=== PATIENT | female | born 1995 | race Caucasian/White ===

== ENCOUNTER 2023-04-17 22:38 | Inpatient (IN) | payer OTHER ==
[2023-04-17] MEDS ORDERED: METHYLERGONOVINE 0.2 MG/ML 1 ML AMP IM PRN (23:14)
[2023-04-17] MEDS ORDERED: miSOPROStoL 200 MCG TAB PO PRN (23:14)
[2023-04-17] MEDS ORDERED: OXYTOCIN 10 UNIT/ML 1 ML VIAL IM PRN (23:14)
[2023-04-17] MEDS ORDERED: TERBUTALINE 1 MG/ML VIAL SQ PRN (23:14)
[2023-04-17] MEDS ORDERED: CARBOPROST TROMETHAMINE 250 MCG/ML 1 ML AMP IM PRN (23:14)
[2023-04-17] MEDS ORDERED: TRANEXAMIC 1,000 MG/100ML-NACL 1,000 MG in EMPTY BAG 1 BAG IV PRN (23:14)
[2023-04-17] MEDS ORDERED: LIDOCAINE 0.5% (PF) 5 MG/ML (50 ML SDV) SQ PRN (23:14)
[2023-04-17] MEDS ORDERED: OXYTOCIN 30 UNITS/500 ML NS 30 UNIT in SALINE 1 500ML.BAG IV SCH (23:15)
[2023-04-17] MEDS ORDERED: AMPICILLIN 2,000 MG in SODIUM CHLORIDE 0.9% 100 ML IVPB ONE (23:30)
[2023-04-17] MEDS: LACTATED RINGERS 1,000 ML IV SCH (23:42)
[2023-04-17 23:55] LABS: Basophils % (A) 0 %; Eosinophils # (A) 0.2 k/uL (0-0.7); Eosinophils % (A) 2 %; HCT 37.5 % (34.0-46.0); HGB 12.9 gm/dL (11.4-16.0); Lymphocytes # (A) 2.2 k/uL (1.0-4.8); Lymphocytes % (A) 23 %; MCH 33.5 pg (25.0-35.0); MCHC 34.5 g/dL (31.0-37.0); MCV 97.1 fL (80.0-100.0); Mean Platelet Volume 11.4; Monocytes # (A) 0.4 k/uL (0-1.0); Monocytes % (A) 5 %; Neutrophils # (A) 6.4 k/uL (1.3-7.7); Neutrophils % (A) 68 %; Platelet Count 140 k/uL (150-450); RBC 3.86 m/uL (3.80-5.40); RDW 12.6 % (11.5-15.5); WBC 9.4 k/uL (3.8-10.6)
[2023-04-18 01:18] LABS: Large Platelets Present
[2023-04-18] MEDS: AMPICILLIN 1,000 MG in SODIUM CHLORIDE 0.9% 50 ML IVPB SCH ×6 (05:50→23:55)
--- NOTE | 2023-04-18 11:01 | P.HPOB ---
History of Present Illness H&P Date: 04/18/23 Chief Complaint: Spontaneous rupture of membranes This is a 27-year-old female 3 para 2 with a estimated date of confinement of 04/19/2023, estimated gestational age of 39-5/7 weeks on admission, who presents to labor and delivery with complaints of spontaneous rupture membranes at approximately 6 PM on 04/17/2023. She has been feeling irregular mild contractions since that time. She arrived at approximately 11 PM and was noted to be about 3-1/2 cm at that time. care has been with Dr. Hewitt and has been uncomplicated per patient. Patient would like is little intervention as possible during this labor. labs: Hepatitis B surface antigen-negative RPR-nonreactive Rubella-immune Blood type-A+ Antibody screen-negative HIV-nonreactive Hemoglobin-12.3 Hepatitis C-negative Random glucose-75 GC/chlamydia/Trichomonas-negative One hour Glucola-93 Group B streptococcus-positive Obstetrical history: . History of 2 vaginal deliveries at full-term with no complications. She does state she had very long labors. Gynecologic history: No history of sexual transmitted diseases Social history: She is . She is unemployed. Review of Systems Constitutional: Denies chills, Denies fever Eyes: denies blurred vision, denies pain Ears, nose, mouth and throat: Denies headache, Denies sore throat Cardiovascular: Denies chest pain, Denies shortness of breath Respiratory: Denies cough Gastrointestinal: Reports abdominal pain (Mild contractions) Genitourinary: Denies dysuria, Denies hematuria Musculoskeletal: Reports low back pain Integumentary: Denies pruritus, Denies rash Neurological: Denies numbness, Denies weakness Psychiatric: Denies anxiety, Denies depression Past Medical History Past Medical History: No Reported History History of Any Multi-Drug Resistant Organisms: None Reported Past Surgical History: Tonsillectomy Past Anesthesia/Blood Transfusion Reactions: No Reported Reaction Past Psychological History: No Psychological Hx Reported Smoking Status: Never smoker Past Alcohol Use History: None Reported Past Drug Use History: None Reported - Past Family History Father Family Medical History: Hypertension Medications and Allergies Home Medications Medication Instructions Recorded Confirmed Type Vit No.179/Iron/Folic 1 tab PO DAILY 04/17/23 04/17/23 History [ Tablet] Allergies Allergy/AdvReac Type Severity Reaction Status Date / Time No Known Allergies Allergy Verified 04/17/23 22:53 Exam Osteopathic Statement: *. No significant issues noted on an osteopathic structural exam other than those noted in the History and Physical/Consult. Vital Signs Temp Pulse Resp BP Pulse Ox 04/17/23 23:12 96.7 F L 60 16 119/74 99 04/17/23 22:53 96.7 F L 60 16 119/74 99 Intake and Output 04/17/23 04/18/23 04/18/23 22:59 06:59 14:59 Other: # Voids 2 Weight 68.039 kg 68.039 kg HEENT: Within normal limits Heart: Regular rate and rhythm Lungs: Clear to auscultation bilaterally Abdomen: , nontender heart tones: 110s to 120s with moderate variability and accelerations. Occasional variable deceleration. Contractions: Irregular approximately 8-10 minutes apart Cervix: On admission is 3-1/2 cm/60%/-2 station. On my exam currently she is 4- 1/2 cm/60%/-3 station with no fluid initially identified on exam. Artificial rupture membranes is carried out with clear fluid noted. She may have had a f ore bag rupture prior to this. Extremities: Negative Homans Results Result Diagrams: 04/17/23 23:30 Abnormal Lab Results - Last 24 Hours (Table) 04/17/23 Range/Units 23:30 Plt Count 140 L (150-450) k/uL Assessment and Plan (1) 39 weeks gestation of Current Visit: Yes Status: Acute Code(s): Z3A.39 - 39 WEEKS GESTATION OF SNOMED Code(s): 18274492 (2) Group B Streptococcus carrier, +RV culture, currently Current Visit: Yes Status: Acute Code(s): O99.820 - STREPTOCOCCUS B CARRIER STATE COMPLICATING SNOMED Code(s): 9984438583329 (3) Spontaneous rupture of membranes Current Visit: Yes Status: Acute Code(s): QYW9562 - SNOMED Code(s): 482443630 (4) Premature rupture of membranes (PROM), onset of labor within 24 hours, antepartum Current Visit: Yes Status: Acute Code(s): O42.00 - LALO ROM, ONSET LABOR W/N 24 HR OF RUPT, UNSP WEEKS OF GEST SNOMED Code(s): 217538190 Plan: Admission for spontaneous rupture of membranes. Antibiotic prophylaxis for group B streptococcus. Patient wishes no intervention including oxytocin or pain medication. Since she is agreeable to antibiotic prophylaxis for the group B streptococcus, will continue with observation for spontaneous labor at this time. Expectant management.
[2023-04-18] MEDS: LACTATED RINGERS 1,000 ML IV SCH ×2 (11:43→15:49)
[2023-04-19] MEDS ORDERED: BENZOCAINE/MENTHOL SPRAY 1 GM/SPRAY AEROSOL TOPICAL PRN (00:24)
--- NOTE | 2023-04-19 00:53 | P.PROBDLV ---
Vaginal Delivery Note - . Vaginal Delivery Note: The patient presented with spontaneous rupture of membranes at 1800 on 04/17/2023. Even though her contractions were irregular, she refused oxytocin. At approximately 10 AM on 04/18/2023, I checked her and did feel another bag that was artificially ruptured with more clear fluid noted. Despite this, she still did not progress and still was having irregular contractions up until approximately 24 hours of rupture of membranes. She did receive ampicillin for positive group B streptococcus since arrival to labor and delivery. At approximately 24 hours, she did consent for oxytocin augmentation of labor and did use nitrous oxide for pain control. Once reaching complete, she began pushing. She pushed for approximately 9 minutes. Infant's head came to a crown. With one further push, the infant's head delivered across the perineum in a right occiput anterior lie followed by the anterior shoulder and nuchal right hand. Nose and mouth were bulb suctioned at the perineum and then with one further push, the remainder the easily delivered and was placed on mother's abdomen. Infant was born at 12:24 AM on 04/19/2023. Nose and mouth were again bulb suctioned. After cord finish pulsating, cord was clamped and cut and that was allowed to walters with mother. Infant was then taken to warmer for evaluation by nursing staff. A viable male infant was noted with scores of 7 at 1 minute and 8 at 5 minutes. Infant weight is pending at this time. Placenta delivered shortly thereafter, intact, with a three-vessel cord. Uterus contracted fairly well after oxytocin was given and uterine massage was carried out. A gloved hand was also placed within the uterine cavity to remove any blood clots and her bladder was drained with a catheter. Inspection of the perineum revealed a second-degree perineal laceration. The area was anesthetized with 1% lidocaine and then sutured with 3-0 and 2-0 Vicryl suture in the usual multilayer fashion. Estimated blood loss is approximately 200 mL's. Mother is in stable condition and infant is being monitored in level I nursery.
[2023-04-19] MEDS ORDERED: diphenhydrAMINE 25 MG CAP PO PRN (02:12)
[2023-04-19] MEDS ORDERED: LANOLIN CREAM 5 GM TUBE TOPICAL PRN (02:12)
[2023-04-19] MEDS ORDERED: SIMETHICONE 80 MG CHEWABLE PO PRN (02:12)
[2023-04-19] MEDS ORDERED: ZOLPIDEM 5 MG TAB PO PRN (02:12)
[2023-04-19] MEDS ORDERED: HYDROCORTISONE 2.5% RECTAL CREAM 30 GM TUBE RECTAL PRN (02:12)
[2023-04-19] MEDS ORDERED: diphenhydrAMINE 50 MG CAP PO PRN (02:12)
[2023-04-19] MEDS: LACTATED RINGERS 1,000 ML IV SCH (02:14)
[2023-04-19] MEDS: SENNOSIDES-DOCUSATE SODIUM 1 EACH TAB PO SCH ×2 (08:29→20:19)
[2023-04-19] MEDS: IBUPROFEN 600 MG TAB PO PRN ×2 (11:16→17:05)
[2023-04-19] MEDS: ACETAMINOPHEN TAB 325 MG TAB PO PRN ×2 (13:04→20:19)
[2023-04-19 16:14] VITALS: RESP 16
[2023-04-20] MEDS: IBUPROFEN 600 MG TAB PO PRN ×2 (00:57→08:16)
--- NOTE | 2023-04-20 06:55 | P.PNOBGVD ---
Subjective - Subjective Patient reports: Reports appetite normal, Reports voiding normally, Reports pain well controlled, Reports ambulating normally : doing well Objective - Latest Vital Signs Latest vital signs: Vital Signs Temp Pulse Resp BP Pulse Ox 04/20/23 04:00 97.9 F 69 16 118/76 97 04/20/23 00:00 98 F 68 16 121/74 98 04/19/23 20:00 98 F 68 16 108/62 98 04/19/23 16:00 98.1 F 82 16 104/65 04/19/23 12:00 98.3 F 73 20 113/76 04/19/23 08:00 98.3 F 69 20 96/56 Intake and Output 04/19/23 04/19/23 04/20/23 14:59 22:59 06:59 Intake Total 360 Balance 360 Intake: Oral 360 Other: # Voids 1 1 1 - Exam Lungs: bilateral: normal Chest: Normal S1, Normal S2 Extremities: Present: normal Abdomen: Present: normal appearance, soft Uterus: Present: normal, firm Assessment and Plan Assessment: day #1. Patient is resting without complaints and wishes to go home. Vital signs are stable she is afebrile. Uterus is firm nontender and she is having normal lochia. My impression that this is a normal course. Plan is to continue routine care discharge home later today. (1) Normal vaginal delivery Current Visit: Yes Status: Acute Code(s): O80 - ENCOUNTER FOR FULL-TERM UNCOMPLICATED DELIVERY SNOMED Code(s): 76332791
--- NOTE | 2023-04-20 06:59 | P.DS ---
Providers Date of admission: 04/17/23 23:00 Expected date of discharge: 04/20/23 Attending physician: Mode Hewitt Primary care physician: Stated None - Discharge Diagnosis(es) (1) Normal vaginal delivery Current Visit: Yes Status: Acute Hospital Course: Please see dictated H&P and delivery note per Dr. Sanchez on this patient's admission and delivery. Brief summary this is a pleasant 27-year-old 3 para 2 female 39-5/7 weeks gestation admitted to labor and delivery with spontaneous rupture membranes. Patient's given antibiotics for positive group B strep culture eventually does allow augmentation of labor and goes on to have a vaginal delivery viable male . Please see dictated delivery note. day #1 patient is doing well felt be stable for discharge home follow up with me in 6 weeks. Procedures: Normal spontaneous vaginal delivery Patient Condition at Discharge: Good Plan - Discharge Summary New Discharge Prescriptions: New Ibuprofen [Motrin] 600 mg PO Q6HR PRN #30 tab PRN Reason: Mild Pain (Scale 1 To 3) No Action Vit No.179/Iron/Folic [ Tablet] 1 tab PO DAILY Discharge Medication List Vit No.179/Iron/Folic [ Tablet] 1 tab PO DAILY 04/17/23 [History] Ibuprofen [Motrin] 600 mg PO Q6HR PRN #30 tab 04/20/23 [Rx] Follow up Appointment(s)/Referral(s): Mode Hewitt MD [STAFF PHYSICIAN] - 1 Week (PP 06/02/2023 @10:30) Patient Instructions/Handouts: Vaginal Delivery (DC) Activity/Diet/Wound Care/Special Instructions: No intercourse or anything per vagina for 6 weeks. Please call if any fever, chills, excessive vaginal bleeding, and/or abdominal pain. Discharge Disposition: HOME SELF-CARE
[2023-04-20 07:24] LABS: Basophils % (A) 0 %; Eosinophils # (A) 0.2 k/uL (0-0.7); Eosinophils % (A) 2 %; HCT 36.2 % (34.0-46.0); HGB 12.2 gm/dL (11.4-16.0); Lymphocytes # (A) 2.3 k/uL (1.0-4.8); Lymphocytes % (A) 24 %; MCH 33.5 pg (25.0-35.0); MCHC 33.7 g/dL (31.0-37.0); MCV 99.3 fL (80.0-100.0); Mean Platelet Volume 11.9; Monocytes # (A) 0.5 k/uL (0-1.0); Monocytes % (A) 5 %; Neutrophils # (A) 6.6 k/uL (1.3-7.7); Neutrophils % (A) 68 %; RBC 3.65 m/uL (3.80-5.40); RDW 12.5 % (11.5-15.5); WBC 9.8 k/uL (3.8-10.6)
[2023-04-20 07:32] LABS: Platelet Count 144 k/uL (150-450)
[2023-04-20 08:14] VITALS: BP 117/73; TEMP 97.8
[2023-04-20] MEDS: SENNOSIDES-DOCUSATE SODIUM 1 EACH TAB PO SCH (08:16)
[2023-04-20 13:06] VITALS: PULSE 69
--- NOTE | 2023-04-20 13:06 | P.MSEPDOC ---
Presenting Problems - Arrival Data Date of Arrival on Unit: 04/17/23 Time of Arrival on Unit: 23:00 Mode of Transport: Ambulatory - Complaint OB-Reason for Admission/Chief Complaint: Rule Out SROM Comment: patient presents to [facility] with complaints of ROM. Patient stated fluid was clear to pink tinged. Medical History - Information : 3 Para: 2 Term: 2 : 0 Abortions: Spontaneous or Elective: 0 Number of Living Children: 2 - Gestational Age Gestational Age by DARRELL (wks/days): 39 Weeks and 6 Days - History Complications: GBS+ Review of Systems - Review of Systems Constitutional: No problems Breast: No problems ENT: No problems Cardiovascular: No problems Respiratory: No problems Gastrointestinal: No problems Genitourinary: No problems Musculoskeletal: No problems Neurological: No problems Skin: No problems Vital Signs - Temperature Temperature: 97.8 F Temperature Source: Oral - Pulse Pulse Oximetery Pulse Rate: 69 Pulse Assessment Method: Pulse Oximetry Right Brachial Pulse Rate: 77 Pulse Assessment Method: Automatic Cuff - Respirations Respiratory Rate: 16 Oxygen Delivery Method: Room Air - Blood Pressure Right Arm Blood Pressure: 117/73 Blood Pressure Mean: 87 Blood Pressure Source: Automatic Cuff Medical Screen Scoring - Cervical Exam Dilation (cm): 3 Effacement (%): 60 Station: -2 Membranes: Ruptured - Assessment - Baby A Baseline FHR: 115 Heart Rate - NICHD Category: Category I (Normal) NST: Reactive Physician Notification - Physician Notified Physician Notified Date: 04/17/23 Physician Notified Time: 23:02 Physician: Meka Sanchez Order Received: Yes (admit patient for labor) Maternal Triage Index - Maternal Triage Index Presenting for scheduled procedure w/no complaint: No - Stat/Priority 1 Stat Priority 1: No - Urgent/Priority 2 Urgent Priority 2: No - Prompt/Priority 3 Prompt Priority 3: No - Non-Urgent/Priority 4 Non-Urgent Priority 4: Yes Criteria Met for Priority 4: patient presents to [facility] with complaints of ROM. Patient stated fluid was clear to pink tinged. Disposition - Disposition OB Disposition: Admit Transferred to:: [facility] Discharge Date: 04/20/23 Discharge Time: 11:06 I agree with the RN Medical Screening Exam: Yes Case reviewed; plan agreed upon as documented in EMR&OBIX.: Yes Diagnosis: ENCOUNTER FOR FULL-TERM UNCOMPLICATED DELIVERY
== END 2023-04-20 11:06 | disposition home or self-care (01) | DRG 807 ==
LOC: FBPOP 22:38 → 4FBP 23:00
PROVIDERS: ADMIT Obstetrics & Gynecology; ATTEND Obstetrics & Gynecology
PROC: 10E0XZZ Delivery of Products of Conception, External Approach (ICD-10-PCS; principal; 2023-04-19)
PROC: 0KQM0ZZ Repair Perineum Muscle, Open Approach (ICD-10-PCS; 2023-04-19)
PROC: 3E033VJ Introduction of Other Hormone into Peripheral Vein, Percutaneous Approach (ICD-10-PCS; 2023-04-19)
PROC: 10907ZC Drainage of Amniotic Fluid, Therapeutic from Products of Conception, Via Natural or Artificial Opening (ICD-10-PCS; 2023-04-19)
DX: O42.92 Full-term premature rupture of membranes, unspecified as to length of time between rupture and onset of labor (principal); Z37.0 Single live birth; O70.1 Second degree perineal laceration during delivery; O99.824 Streptococcus B carrier state complicating childbirth; Z3A.39 39 weeks gestation of pregnancy; Z82.49 Family history of ischemic heart disease and other diseases of the circulatory system
CPT/HCPCS: 59025; 84112; 85025; 86850; 86900; 86901; 99213

== ENCOUNTER 2025-05-19 11:53 | Inpatient (IN) | payer OTHER ==
[2025-05-22] MEDS ORDERED: METHYLERGONOVINE 0.2 MG/ML 1 ML AMP IM PRN (18:39)
[2025-05-22] MEDS ORDERED: OXYTOCIN 10 UNIT/ML 1 ML VIAL IM PRN (18:39)
[2025-05-22] MEDS ORDERED: CARBOPROST TROMETHAMINE 250 MCG/ML 1 ML AMP IM PRN (18:39)
[2025-05-22] MEDS ORDERED: TERBUTALINE 1 MG/ML VIAL SQ PRN (18:39)
[2025-05-22] MEDS ORDERED: TRANEXAMIC 1,000 MG/100ML-NACL 1,000 MG in EMPTY BAG 1 BAG IV PRN (18:39)
[2025-05-22] MEDS ORDERED: LIDOCAINE 0.5% (PF) 5 MG/ML (50 ML SDV) SQ PRN (18:39)
[2025-05-22] MEDS ORDERED: OXYTOCIN 30 UNITS/500 ML NS 30 UNIT in SALINE 1 500ML.BAG IV SCH (18:45)
[2025-05-22 20:40] LABS: Basophils # (A) 0.06 10*3/uL (0.00-0.10); Basophils % (A) 0.5 %; Eosinophils # (A) 0.20 10*3/uL (0.04-0.35); Eosinophils % (A) 1.8 %; HCT 30.2 % (37.2-46.3); HGB 10.3 g/dL (12.0-15.0); Lymphocytes # (A) 2.51 10*3/uL (0.90-5.00); Lymphocytes % (A) 22.7 %; MCH 30.7 pg (27.0-32.0); MCHC 34.1 g/dL (32.0-37.0); MCV 90.1 fL (80.0-97.0); Monocytes # (A) 0.78 10*3/uL (0.20-1.00); Monocytes % (A) 7.0 %; Neutrophils # (A) 7.40 10*3/uL (1.80-7.70); Neutrophils % (A) 66.8 %; Platelet Count 181 10*3/uL (140-440); RBC 3.35 10*6/uL (4.10-5.20); RDW 12.9 % (11.5-14.5); WBC 11.08 10*3/uL (4.50-10.00)
[2025-05-23] MEDS: LACTATED RINGERS 1,000 ML IV SCH (00:44)
--- NOTE | 2025-05-23 07:38 | P.HPOB ---
History of Present Illness H&P Date: 05/23/25 Chief Complaint: Medical induction of labor Ms. Nassar is a 29 year old at 41 weeks and 1 day with EDC of 05/15/2025 by LMP consistent with 10 week US presenting for medical induction of labor for post-dates, oligohydramnios, and deceleration in the office on NST. The has been essentially uncomplicated. The fetus is estimated to weigh in the 38%ile based on a 32 week growth US, or approximately 7 pounds. Obstetric history: 3 FTVD, second son born with a cleft lip work-up: blood type A positive, antibody screen negative, rubella immune, VDRL non-reactive, HBsAg negative, HIV negative, HCV Ab non-reactive, gonorrhea negative, chlaymdia negative, 1 hour GTT declined but 2 weeks of QID BS wnl, GBS negative. Past Medical History Past Medical History: No Reported History History of Any Multi-Drug Resistant Organisms: None Reported Past Surgical History: Tonsillectomy Past Anesthesia/Blood Transfusion Reactions: No Reported Reaction Past Psychological History: No Psychological Hx Reported Smoking Status: Never smoker Past Alcohol Use History: None Reported Past Drug Use History: None Reported - Past Family History Father Family Medical History: Hypertension Medications and Allergies Home Medications Medication Instructions Recorded Confirmed Type Vit No.179/Iron/Folic 1 tab PO DAILY 04/17/23 05/22/25 History [ Tablet] Allergies Allergy/AdvReac Type Severity Reaction Status Date / Time No Known Allergies Allergy Verified 04/17/23 22:53 Exam Vital Signs Temp Pulse Resp BP 05/22/25 18:38 97.6 F 92 18 121/71 Intake and Output 05/22/25 05/23/25 05/23/25 22:59 06:59 14:59 Other: # Voids 2 2 Weight 71.668 kg Focused physical exam is performed. This is a healthy-appearing in no apparent distress. Breathing is non-labored. Abdomen is gravid and non-tender. Cervical exam was 260/-3 prior to cooks catheter insertion overnight. Cooks is removed this morning and exam is 570/-3. AROM is undertaken revealing clear amniotic fluid. Extremities non-tender and non-edematous. heart tones are Category I and tocometer is graphing contractions every 3-5 minutes. Results Result Diagrams: 05/22/25 20:23 Abnormal Lab Results - Last 24 Hours (Table) 05/22/25 Range/Units 20:23 WBC 11.08 H (4.50-10.00) 10*3/uL RBC 3.35 L (4.10-5.20) 10*6/uL Hgb 10.3 L (12.0-15.0) g/dL Hct 30.2 L (37.2-46.3) % MPV 12.4 H (9.5-12.2) fL Immature Gran # 0.13 H (0.00-0.04) 10*3/uL Assessment and Plan Assessment: 29 year old at 41 weeks and 1 day presenting medical induction of labor for post-dates, oligohydramnios Plan: Admit, clear liquid diet, nipple stimulation (patient refusing pitocin at this time), continuous EFM and tocometer. Anticipate vaginal delivery.
[2025-05-23] MEDS ORDERED: ZOLPIDEM 5 MG TAB PO PRN (16:56)
[2025-05-23] MEDS ORDERED: HYDROCORTISONE 2.5% RECTAL CREAM 30 GM TUBE RECTAL PRN (16:56)
[2025-05-23] MEDS ORDERED: BENZOCAINE/MENTHOL SPRAY 1 GM/SPRAY AEROSOL TOPICAL PRN (16:56)
[2025-05-23] MEDS ORDERED: diphenhydrAMINE 25 MG CAP PO PRN (16:56)
[2025-05-23] MEDS ORDERED: diphenhydrAMINE 50 MG/ML 1 ML VIAL IVP PRN ×2 (16:56)
[2025-05-23] MEDS ORDERED: SIMETHICONE 80 MG CHEWABLE PO PRN (16:56)
[2025-05-23] MEDS ORDERED: LANOLIN CREAM 1 GM TUBE TOPICAL PRN (16:56)
--- NOTE | 2025-05-23 16:56 | P.PROBDLV ---
Vaginal Delivery Note - . Vaginal Delivery Note: DATE OF SERVICE: 05/23/2025 PROCEDURE: Normal Vaginal Delivery ATTENDING: Dr. Vandana Allen MD ESTIMATED BLOOD LOSS: 300 mL FINDINGS: VFI, Apgars 9/9. Weight pending. PROCEDURE: Ms. Nassar is a 29 year old at 41 weeks and 1 day presenting to labor and delivery for medical induction of labor for post-dates and oligohydramnios. For further details, please review the admitting H&P. Cooks catheter was inserted o on the evening of 05/[address] for 12 hours. AROM was then undertaken at 717 revealing clear amniotic fluid. The patient was completely dilated at 1618. She pushed effectively. A viable female infant was delivered at 1626. The infant was placed on the maternal abdomen and bulb suctioned. The was noted to be spontaneously crying. Cord was clamped and cut after a 5 minute delay per patient request. The was tina d off to the pediatric team. Placenta was delivered whole with gentle cord traction at 1633. Oxytocin was given IM (per patient request) to facilitate uterine tone. Uterine fundus was found to be firm and below the umbilicus upon fundal massage. Thorough examination of the cervix, vagina, periurethral area, and perineum revealed aq very small second degree perineal laceration. This area was infiltrated with lidocaine and repaired with 2-0 Vicryl in the usual fashion. The patient is stable and allowed to begin the bonding process.
[2025-05-23] MEDS: IBUPROFEN 800 MG TAB PO SCH (19:23)
[2025-05-23] MEDS: SENNOSIDES-DOCUSATE SODIUM 1 EACH TAB PO SCH (21:51)
[2025-05-24] MEDS: ACETAMINOPHEN TAB 500 MG TAB PO SCH (02:35)
[2025-05-24 06:18] LABS: Basophils # (A) 0.04 10*3/uL (0.00-0.10); Basophils % (A) 0.3 %; Eosinophils # (A) 0.12 10*3/uL (0.04-0.35); Eosinophils % (A) 0.8 %; HCT 27.9 % (37.2-46.3); HGB 9.3 g/dL (12.0-15.0); Lymphocytes # (A) 2.14 10*3/uL (0.90-5.00); Lymphocytes % (A) 14.6 %; MCH 29.6 pg (27.0-32.0); MCHC 33.3 g/dL (32.0-37.0); MCV 88.9 fL (80.0-97.0); Monocytes # (A) 0.87 10*3/uL (0.20-1.00); Monocytes % (A) 5.9 %; Neutrophils # (A) 11.37 10*3/uL (1.80-7.70); Neutrophils % (A) 77.4 %; Platelet Count 181 10*3/uL (140-440); RBC 3.14 10*6/uL (4.10-5.20); RDW 13.1 % (11.5-14.5); WBC 14.69 10*3/uL (4.50-10.00)
--- NOTE | 2025-05-24 12:50 | P.DS ---
Providers Date of admission: 05/22/25 18:36 Expected date of discharge: 05/24/25 Attending physician: Vandana Allen MD Primary care physician: Stated None Hospital Course: Ms. Nassar is a 29 year old now PPD#1 s/p after induction of labor for post-dates and oligohydramios. Delivery was uncomplicated. The patient is doing well this morning and had no acute events overnight. She has no complaints this morning. She reports minimal lochia, passing flatus, voiding without difficulty, ambulating, and eating/drinking without nausea or vomiting. Infant doing well at bedside. She denies chest pain, shortness of breathing, fevers, or chills overnight. She denies pain or swelling in the legs. restrictions are reviewed with the patient including pelvic rest for 6 weeks. The patient is encouraged to call the office if she experiences any heavy bleeding, foul-smelling discharge, breast complaints, or any if she has any other concerns. She will follow up in the office with in 6 weeks for exam. All questions are answered. Patient Condition at Discharge: Good Plan - Discharge Summary Discharge Rx Participant: Yes New Discharge Prescriptions: No Action Vit No.179/Iron/Folic [ Tablet] 1 tab PO DAILY Discharge Medication List Vit No.179/Iron/Folic [ Tablet] 1 tab PO DAILY 04/17/23 [History] Follow up Appointment(s)/Referral(s): Vandana Allen MD [STAFF PHYSICIAN] - 07/03/25 11:00 am Activity/Diet/Wound Care/Special Instructions: Instructions 1. Do not begin any exercise program for 3 weeks. 2. Do not resume sexual relations for 6 weeks or longer if uncomfortable. 3. You may take tub baths or showers at any time. 4. You may use tampons if desired after 6 weeks. 5. Keep any areas repaired with stitches clean and dry. 6. If you are not nursing, wear a good fitting, supportive bra during the day and limit fluid intake for at least 1 week to prevent breast engorgement. 7. Call the office, , within the next week to make appointment for your 6 week checkup if it has not already been made. 8. Report any of the following occurrences to the doctor promptly: a. Heavy, excessive bleeding b. Chills, fever c. Burning or frequency of urination d. Pain or redness and breasts if nursing e. Increasing pain or swelling of vulva (stitches). In addition to the above instructions, the following additional should be followed: 1. No heavy lifting or straining (exercising) until after 6 week checkup. 2. Keep abdominal incision clean and dry: You may wear a dressing if more comfortable. 3. Make office appointment for 2 weeks after delivery date. Discharge Disposition: HOME SELF-CARE
[2025-05-24 17:41] VITALS: BP 101/68; PULSE 89; RESP 15; TEMP 98.1
== END 2025-05-24 18:45 | disposition home or self-care (01) | DRG 806 ==
LOC: 4FBP 05-22 18:36
PROVIDERS: ADMIT Obstetrics & Gynecology; ATTEND Obstetrics & Gynecology
PROC: 0U7C7DJ Dilation of Cervix with Intraluminal Device, Temporary, Via Natural or Artificial Opening (ICD-10-PCS; 2025-05-22)
PROC: 0KQM0ZZ Repair Perineum Muscle, Open Approach (ICD-10-PCS; principal; 2025-05-23)
PROC: 10E0XZZ Delivery of Products of Conception, External Approach (ICD-10-PCS; principal; 2025-05-23)
PROC: 10907ZC Drainage of Amniotic Fluid, Therapeutic from Products of Conception, Via Natural or Artificial Opening (ICD-10-PCS; principal; 2025-05-23)
PROC: 3E033VJ Introduction of Other Hormone into Peripheral Vein, Percutaneous Approach (ICD-10-PCS; principal; 2025-05-23)
DX: O48.0 Post-term pregnancy (principal); O41.03X0 Oligohydramnios, third trimester, not applicable or unspecified; O76 Abnormality in fetal heart rate and rhythm complicating labor and delivery; O70.1 Second degree perineal laceration during delivery; Z3A.41 41 weeks gestation of pregnancy; Z37.0 Single live birth
CPT/HCPCS: 85025; 86850; 86900; 86901